=== PATIENT | female | born 2000 | race Hispanic/Latino ===

== ENCOUNTER 2022-09-03 17:01 | Emergency (ER) | payer OTHER ==
--- OUTSIDE RECORDS SUMMARY | 2022-09-03 17:03 | XMS REPORT | Continuity of Care Document ---
:[address] [facility] t Address [address] [facility] [address] [place] [id number] Care Team Providers Name Role Phone Namrata Abdul RN Attending Clinician Unavailable Only, Adc Test Attending Clinician Unavailable Pj Allison MD Attending Clinician Payers Payer Name Policy Type Policy Number Effective Date Expiration Date S ource Problems This patient has no known problems. Allergies, Adverse Reactions, Alerts Allergy Allergy Status Severity Reaction(s) Onset Inactive Treating Comm ents Source Name Type Date Date Clinician NO KNOWN Drug Active Univers ALLERGIE Class ity of S [facility] Social History Social Habit Start Date Stop Date Quantity Comments Source Sex [facility] Exposure to SARS-CoV-2 Yes [facility] [place] [facility] Smoking Status Start Date Stop Date Source Unknown if ever smoked Universit y [facility] Medications This patient has no known medications. Immunizations Ordered Filled Immunization Date Status Comments Sour e Immunization Name Name HEPATITIS A 2004-12-06 Completed [facility] 00:00:00 [facility] PPD (TB) 2004-12-06 Completed [facility] 00:00:00 [facility] HEPATITIS A 2004-12-06 Completed University 00:00:00 [facility] PPD (TB) 2004-12-06 Completed [facility] 00:00:00 [facility] Procedures This patient has no known procedures. Encounters Start End Encounter Admission Attending Care Care Encounter Source Date/Time Date/Time Type Type Clinicians Facility Department ID 2020-03-07 2020-03-07 Letter Namrata Abdul [id number] Univers 00:00:00 00:00:00 (Out) MICHIE [id number] [facility] [id number] Reuben as [id number] [address] 2020-03-01 2020-03-01 Laboratory Only, Adc Test [facility] [id number] Univers 10:03:43 10:18:43 Only Pj Allison [id number] ity Colon [id number] [facility] [id number] [facility] [address] 2020-03-01 2020-03-01 Outpatient R [facility] [id number] Univers 09:45:00 09:45:00 ity [facility] Results This patient has no known results.
[2022-09-03 18:10] LABS: Specific Gravity 1.009 (1.005-1.030); Urine Bilirubin NEGATIVE (Negative); Urine Blood Negative (Negative); Urine Clarity Clear (Clear); Urine Color Colorless (Yellow); Urine Glucose NEGATIVE (Negative); Urine Protein NEGATIVE (Negative); Urine Urobilinogen Normal (Normal)
[2022-09-03 19:05] LABS: Absolute Lymphocytes (CBC) 1.4 K/uL (0.7-4.9); Hematocrit 43.5 % (36.0-45.0); Lymphocytes % 12.9 % (15.3-44.8); MCV 94.8 fL (80-100); MPV 8.4 fL (7.6-11.3); RBC Red Blood Cell Count 4.59 M/uL (3.86-4.86)
[2022-09-03 19:16] LABS: Albumin 4.2 g/dL (3.4-5.0); Bilirubin Total 0.6 mg/dL (0.2-1.0); Potassium 3.5 mEq/L (3.5-5.1); Protein, Total 8.4 g/dL (6.4-8.2)
--- NOTE | 2022-09-03 19:39 | RAD REPORT ---
EXAM DESCRIPTION: CT - Stone Protocol - 09/03/2022 7:20 pm CLINICAL HISTORY: Flank pain. FLANK PAIN COMPARISON: No comparisons TECHNIQUE: Axial images were obtained without oral or IV contrast. Lack of contrast limits solid org an and vascular assessment. The [id number] spans the entirety of the system partially obscuring uppermost abdomen and lung bases. Coronal reformatted images were obtained and reviewed. All CT scans are performed using dose optimization technique as appropriate and may include automated exposure control or mA/KV adjustment according to patient size. FINDINGS: The lower lung motta are clear. Imaged portions of the liver and spleen show no suspicious findings on non-contrast imaging. The panc reas and adrenal glands are normal. No pathologic lymphadenopathy in the abdomen or pelvis. No urinary tract stones or obstructive uropathy. No bowel obstruction, free air, free fluid or abscess. Normal appendix noted. No significant bony abnormality. IMPRESSION: No urinary tract stones or obstructive uropathy.
[2022-09-03] MEDS ORDERED: NA CHLORIDE 0.9% 1,000 ML ONE (20:09)
[2022-09-03] MEDS ORDERED: ONDANSETRON 4 MG/2 ML VIAL ONE (20:09)
--- NOTE | 2022-09-03 20:11 | EDPHYS ---
Physician Documentation [facility] Name: Niki Ramos Age: 22 yrs Sex: Female : 2000 Arrival Date: 09/03/2022 Time: 17:01 Bed 10 Private MD: STEVE Physician Nasir Medina HPI: 09/03 20:06 This 22 yrs old Female presents to ER via Ambulatory with complaints of Back anival Pain, Vomiting/Diarrhea. 20:06 This 22 yrs old Female presents to ER via Ambulatory with complaints of Back anival Pain, Vomiting/Diarrhea. 20:06 The patient presents with pain that is acute, with no known mechanism of injury. The anival symptoms are located in the low back. Historical: - Allergies: 17:46 No Known Allergies; aa5 - PMHx: 17:46 None; aa5 - PSHx: 17:46 Tonsillectomy; aa5 - Immunization history:: Adult Immunizations up to date. - Social history:: Smoking status: Patient denies any tobacco usage or history of. ROS: 20:06 Constitutional: Negative for fever, chills, and weight loss, Eyes: Negative for injury, anival pain, redness, and discharge, ENT: Negative for injury, pain, and discharge, Neck: Negative for injury, pain, and swelling, Cardiovascular: Negative for chest pain, palpitations, and edema, Respiratory: Negative for shortness of breath, cough, wheezing, and pleuritic chest pain, Back: Negative for injury and pain, : Negative for injury, bleeding, discharge, and swelling, MS/Extremity: Negative for injury and deformity, Skin: Negative for injury, rash, and discoloration, Neuro: Negative for headache, weakness, numbness, tingling, and seizure, Psych: Negative for depression, anxiety, suicide ideation, homicidal ideation, and hallucinations, Allergy/Immunology: Negative for hives, rash, and allergies, Endocrine: Negative for neck swelling, polydipsia, polyuria, polyphagia, and marked weight changes, Hematologic/Lymphatic: Negative for swollen nodes, abnormal bleeding, and unusual bruising. 20:06 Abdomen/GI: Positive for abdominal pain, nausea and vomiting, diarrhea, abdominal cramps, of the right lower quadrant and left lower quadrant. Exam: 20:06 Constitutional: This is a well developed, well nourished patient who is awake, alert, anival and in no acute distress. Head/Face: Normocephalic, atraumatic. Eyes: Pupils equal round and reactive to light, extra-ocular motions intact. Lids and lashes normal. Conjunctiva and sclera are non-icteric and not injected. Cornea within normal limits. Periorbital areas with no swelling, redness, or edema. ENT: Nares patent. No nasal discharge, no septal abnormalities noted. Tympanic membranes are normal and external auditory canals are clear. Oropharynx with no redness, swelling, or masses, exudates, or evidence of obstruction, uvula midline. Mucous membranes moist. Neck: Trachea midline, no thyromegaly or masses palpated, and no cervical lymphadenopathy. Supple, full range of motion without nuchal rigidity, or vertebral point tenderness. No Meningismus. Chest/axilla: Normal chest wall appearance and motion. Nontender with no deformity. No lesions are appreciated. Cardiovascular: Regular rate and rhythm with a normal S1 and S2. No gallops, murmurs, or rubs. Normal PMI, no JVD. No pulse deficits. Respiratory: Lungs have equal breath sounds bilaterally, clear to auscultation and percussion. No rales, rhonchi or wheezes noted. No increased work of breathing, no retractions or nasal flaring. Back: No spinal tenderness. No costovertebral tenderness. Full range of motion. Skin: Warm, dry with normal turgor. Normal color with no rashes, no lesions, and no evidence of cellulitis. MS/ Extremity: Pulses equal, no cyanosis. Neurovascular intact. Full, normal range of motion. Neuro: Awake and alert, GCS 15, oriented to person, place, time, and situation. Cranial nerves II-XII grossly intact. Motor strength 5/5 in all extremities. Sensory grossly intact. Cerebellar exam normal. Normal gait. Psych: Awake, alert, with orientation to person, place and time. Behavior, mood, and affect are within normal limits. 20:06 Abdomen/GI: Inspection: Bowel sounds: active, all quadrants, Palpation: nontender, Liver: no appreciated palpable abnormalities, Hernia: not appreciated. Vital Signs: 17:47 BP 110 / 75; Pulse 107; Resp 18 S; Temp 97.8(TE); Pulse Ox 98% on R/A; Weight 49.9 kg aa5 (R); Height 5 ft. 3 in. (R); 21:00 BP 108 / 84; Pulse 74; Resp 16; Pulse Ox 100% on R/A; mb9 17:47 Body Mass Index 19.49 (49.90 kg, 160.02 cm) aa5 MDM: 17:45 Patient medically screened. [facility] 20:08 Differential diagnosis: Cholelithiasis chronic back pain, Fatigue Peptic Ulcer anival Pyelonephritis Renal Infarction appendicitis, bowel obstruction, diverticulitis, gastritis, gastroesophageal reflux disease, non-specific abd pain, Peptic Ulcer Disease. Data reviewed: vital signs, nurses notes, lab test result(s), radiologic studies, CT scan. Consideration of Admission/Observation Escalation of care including admission/observation considered. I considered the following discharge prescriptions or medication management in the emergency department Medications were administered in the Emergency Department. See MAR. Test considered but Not performed: Ultrasound NO ABD USG. Historians other than the Patient: Friend: . Care significantly affected by the following chronic conditions: NONE. 09/03 17:45 Order name: CBC with Diff; Complete Time: 19:09 [facility] 09/03 17:45 Order name: CMP; Complete Time: 19:57 [facility] 09/03 17:45 Order name: Lipase; Complete Time: 19:57 [facility] 09/03 17:45 Order name: Test, Urine; Complete Time: 18:21 [facility] 09/03 17:45 Order name: Urinalysis w/ reflexes; Complete Time: 18:21 [facility] 09/03 19:09 Order name: CT Stone Protocol; Complete Time: 19:57 [facility] 09/03 17:45 Order name: IV Saline Lock; Complete Time: 19:51 [facility] 09/03 17:45 Order name: Labs collected and sent; Complete Time: 19:51 [facility] Administered Medications: 20:06 Drug: NS 0.9% IV 1000 ml Route: IV; Rate: 1 bolus; Site: left antecubital; mb9 21:00 Follow up: Response: No adverse reaction; IV Status: Completed infusion mb9 20:06 Drug: Ondansetron IVP 4 mg Route: IVP; Site: left antecubital; mb9 20:59 Follow up: Response: No adverse reaction mb9 Disposition Summary: 09/03/22 20:10 Discharge Ordered Location: Home anival Problem: new anival Symptoms: have improved anival Condition: Stable anival Diagnosis - Abdominal tenderness anival - Vomiting anival - Diarrhea, unspecified anival Followup: [facility] - With: Private Physician - When: 2 - 3 days - Reason: Recheck today's complaints, Continuance of care, Re-evaluation by your physician Discharge Instructions: - Discharge Summary Sheet anival - Abdominal Pain, Adult anival - Food Choices to Help Relieve Diarrhea, Adult anival - Diarrhea, Adult anival - Abdominal Pain, Adult, [id number] anival - Diarrhea, Adult, [id number] anival - Vomiting, Adult anival Forms: - Medication Reconciliation Form anival - Thank You Letter anival - Antibiotic Education anival - Prescription Opioid Use [facility] - Work release form mb9 Prescriptions: - Zofran 4 mg Oral Tablet - take 1 tablet by ORAL route every 8 hours As needed; 20 tablet; Refills: 0, anival Product Selection Permitted - dicyclomine 20 mg Oral Tablet - take 2 tablets by ORAL route 4 times per day; 28 tablet; Refills: 0, Product anival Selection Permitted Signatures: Dispatcher [employer] Nasir Allen MD MD cha Calderon, Audri RN RN aa5 Kimmy Bartholomew RN RN mb9 Corrections: (The following items were deleted from the chart) 17:47 17:46 PSHx: None; andria ayers
--- NOTE | 2022-09-03 20:11 | ER ---
Nurse's Notes [facility] Name: Niki Ramos Age: 22 yrs Sex: Female : 2000 Arrival Date: 09/03/2022 Time: 17:01 Bed 10 Private MD: Diagnosis: Abdominal tenderness;Vomiting;Diarrhea, unspecified Presentation: 09/03 17:47 Chief complaint: Patient states: mid-low back pain, vomiting and diarrhea that began aa5 yesterday. Coronavirus screen: diarrhea. Ebola Screen: Patient denies travel to an Ebola-affected area in the 21 days before illness onset. Initial Sepsis Screen: Does the patient meet any 2 criteria? HR > 90 bpm. Does the patient have a suspected source of infection? No. Patient's initial sepsis screen is negative. Risk Assessment: Do you want to hurt yourself or someone else? Patient reports no desire to harm self or others. Onset of symptoms was September 02, 2022. 17:47 Acuity: MARCO A 3 aa5 17:47 Method Of Arrival: Ambulatory aa5 Triage Assessment: 21:06 General: Behavior is. mb9 Historical: - Allergies: 17:46 No Known Allergies; aa5 - PMHx: 17:46 None; aa5 - PSHx: 17:46 Tonsillectomy; aa5 - Immunization history:: Adult Immunizations up to date. - Social history:: Smoking status: Patient denies any tobacco usage or history of. Screenin:06 [facility] ED Fall Risk Assessment (Adult) History of falling in the last 3 months, mb9 including since admission No falls in past 3 months (0 pts) Confusion or Disorientation No (0 pts) Intoxicated or Sedated No (0 pts) Impaired Gait No (0 pts) Mobility Assist Device Used No (0 pt) Altered Elimination No (0 pt) Score/Fall Risk Level 0 - 2 = Low Risk Oriented to surroundings, Maintained a safe environment, Educated pt \T\ family on fall prevention, incl call for assistance when getting out of bed. Abuse screen: Denies threats or abuse. Nutritional screening: No deficits noted. Tuberculosis screening: No symptoms or risk factors identified. Assessment: 20:07 Pain: Complains of pain in back Pain radiates to left lower quadrant and right lower mb9 quadrant Pain currently is 5 out of 10 on a pain scale. Quality of pain is described as throbbing. Neuro: Level of Consciousness is awake, alert, obeys commands, Oriented to person, place, time, situation, Appropriate for age. Respiratory: Airway is patent Respiratory effort is even, unlabored, Respiratory pattern is regular, agonal. GI: Abdomen is flat, non-distended, Bowel sounds present X 4 quads. Abd is soft and non tender X 4 quads. Derm: Skin is pink, warm \T\ dry. Musculoskeletal: Range of motion: intact in all extremities. Vital Signs: 17:47 BP 110 / 75; Pulse 107; Resp 18 S; Temp 97.8(TE); Pulse Ox 98% on R/A; Weight 49.9 kg aa5 (R); Height 5 ft. 3 in. (R); 21:00 BP 108 / 84; Pulse 74; Resp 16; Pulse Ox 100% on R/A; mb9 17:47 Body Mass Index 19.49 (49.90 kg, 160.02 cm) aa5 ED Course: 17:03 Patient arrived in ED. mr 17:45 Nasir Medina MD is Attending Physician. anival 17:46 Arm band placed on. aa5 17:48 Triage completed. aa5 18:34 Initial lab(s) drawn, by az, sent to lab. Urine collected:. Inserted saline lock: 22 tm3 gauge in left antecubital area, using aseptic technique. 19:21 CT Stone Protocol In Process Unspecified. EDMS 20:00 Kimmy Bartholomew, RN is Primary Nurse. mb9 20:06 Placed in gown. Bed in low position. Call light in reach. Side rails up X 1. mb9 21:06 No provider procedures requiring assistance completed. IV discontinued, intact, mb9 bleeding controlled, No redness/swelling at site. Pressure dressing applied. Administered Medications: 20:06 Drug: NS 0.9% IV 1000 ml Route: IV; Rate: 1 bolus; Site: left antecubital; mb9 21:00 Follow up: Response: No adverse reaction; IV Status: Completed infusion mb9 20:06 Drug: Ondansetron IVP 4 mg Route: IVP; Site: left antecubital; mb9 20:59 Follow up: Response: No adverse reaction mb9 Medication: 20:07 VIS not applicable for this client. mb9 Outcome: 20:10 Discharge ordered by . anival 21:06 Discharged to home ambulatory. mb9 21:06 Condition: stable 21:06 Discharge instructions given to patient, Instructed on discharge instructions, follow up and referral plans. Demonstrated understanding of instructions, follow-up care, medications, Prescriptions given X 2. 21:06 Patient left the ED. mb9 Signatures: Dispatcher [employer] EDMS Ruben Silva tm3 Nasir Medina MD MD cha Rivera, Mary mr Calderon, Audri RN RN aa5 Kimmy Bartholomew RN RN mb9 Corrections: (The following items were deleted from the chart) 17:47 17:46 PSHx: None; andria ayers
[2022-09-03 22:13] VITALS: TEMP 97.8
[2022-09-03 22:15] VITALS: BP 108/84; O2SAT 100
== END 2022-09-03 21:06 | disposition home or self-care (01) ==
LOC: ER 17:01
DX: R10.813 Right lower quadrant abdominal tenderness (principal); R11.10 Vomiting, unspecified; R19.7 Diarrhea, unspecified
CPT/HCPCS: 96361; 85025; 36415; 81025; 81003; 83690; 80053; 76377; 74176; 96374; 99284; J2405; J7030